=== PATIENT | female | born 1990 | race Caucasian/White ===

== ENCOUNTER 2017-06-21 13:14 | Emergency (ER) | payer MEDICAID ==
[~2017-06-21] VITALS: Ht 154.9 cm; Wt 87.0 kg
[2017-06-21 14:18] VITALS: BP 100/59
[2017-06-21] MEDS ORDERED: SODIUM CHLORIDE 0.9% 1,000 ML IV ONE (15:45)
[2017-06-21 16:03] LABS: BASOPHILS % 0.7 % (0.0-2.0); EOSINOPHILS % 4.3 % (0.0-5.0); HEMATOCRIT. 35.3 % (36.0-48.0); HEMOGLOBIN. 12.1 g/dL (12.0-16.0); LYMPHOCYTES % 24.4 % (20.0-50.0); MEAN CORPUSCULAR HEMOGLOBIN 30.8 pg (28.0-32.0); NEUTROPHILS % 65.6 % (40.0-76.0); PLATELET 197 x1000/uL (130-400); RED BLOOD CELL COUNT 3.93 mill/uL (4.2-5.4); RED CELL DISTRIBUTION WIDTH 13.9 % (11.6-14.6)
[2017-06-21 16:07] LABS: CHLORIDE 109 mEq/L (98-107)
[2017-06-21 16:33] LABS: B-HCG QUANTITATIVE 13195 mIU/mL (<3)
[2017-06-21 17:23] LABS: CLARITY URINE CLEAR (CLEAR); COLOR URINE YELLOW (YELLOW); KETONES URINE 1+ (NEGATIVE); LEUKOCYTE ESTERASE URINE 1+ (NEGATIVE); NITRITE URINE NEGATIVE (NEGATIVE); OCCULT BLOOD URINE NEGATIVE (NEGATIVE); PH URINE 6.5 (4.5-8.0); PROTEIN URINE NEGATIVE (NEGATIVE); SPECIFIC GRAVITY URINE 1.027 (1.005-1.030)
[2017-06-21 17:34] LABS: *AMPHETAMINES SCREEN URINE NEGATIVE (NEGATIVE); *BARBITURATES SCREEN URINE NEGATIVE (NEGATIVE); *BENZODIAZEPINES SCREEN URINE NEGATIVE (NEGATIVE); *COCAINE SCREEN URINE NEGATIVE (NEGATIVE); CANNABINOID URINE SCREEN NEGATIVE (NEGATIVE); METHADONE URINE SCREEN NEGATIVE (NEGATIVE); OPIATES URINE SCREEN NEGATIVE (NEGATIVE); PHENCYCLIDINE URINE SCREEN NEGATIVE (NEGATIVE)
== END 2017-06-21 19:00 | disposition home or self-care (01) ==
LOC: ER 13:14
DX: O20.0 Threatened abortion (principal); O23.42 Unspecified infection of urinary tract in pregnancy, second trimester; Z3A.18 18 weeks gestation of pregnancy
CPT/HCPCS: 36415; 76805; 80053; 80305; 81001; 81025; 84702; 85025; 86850; 86900; 86901; 99285; J7030; Z7610

== ENCOUNTER 2018-04-28 19:58 | Emergency (ER) | payer MEDICAID ==
[~2018-04-28] VITALS: Ht 162.6 cm; Wt 91.0 kg
[2018-04-28] MEDS ORDERED: SODIUM CHLORIDE 0.9% 1,000 ML IV ONE (22:44)
[2018-04-28] MEDS ORDERED: DIATR MEGLU/DIATRIZOATE SOLN 30ML ONE (22:58)
[2018-04-28 23:00] LABS: CLARITY URINE CLEAR (CLEAR); COLOR URINE YELLOW (YELLOW); KETONES URINE TRACE (NEGATIVE); LEUKOCYTE ESTERASE URINE TRACE (NEGATIVE); NITRITE URINE NEGATIVE (NEGATIVE); OCCULT BLOOD URINE NEGATIVE (NEGATIVE); PH URINE 5.5 (4.5-8.0); PROTEIN URINE NEGATIVE (NEGATIVE); SPECIFIC GRAVITY URINE 1.037 (1.005-1.030); UROBILINOGEN URINE 0.2 E.U./dL (0.2-1.0)
[2018-04-28 23:53] LABS: BASOPHILS % 0.7 % (0.0-2.0); HEMATOCRIT. 38.9 % (36.0-48.0); HEMOGLOBIN. 12.9 g/dL (12.0-16.0); LYMPHOCYTES % 37.8 % (20.0-50.0); MEAN CORPUSCULAR HEMOGLOBIN 30.4 pg (28.0-32.0); MEAN CORPUSCULAR VOLUME 91.5 fL (81.0-99.0); NEUTROPHILS % 51.5 % (40.0-76.0); PLATELET 215 x1000/uL (130-400); RED BLOOD CELL COUNT 4.25 mill/uL (4.2-5.4); RED CELL DISTRIBUTION WIDTH 12.6 % (11.6-14.6)
[2018-04-28 23:58] LABS: CHLORIDE 107 mEq/L (98-107)
[2018-04-29 00:14] LABS: HCG SCREEN NEGATIVE
[2018-04-29] MEDS ORDERED: IOHEXOL-300 100 ML BOTTLE ONE (02:00)
[2018-04-29 04:31] VITALS: BP 103/63
== END 2018-04-29 05:49 | disposition home or self-care (01) ==
LOC: ER 19:58
DX: R11.0 Nausea (principal); R19.7 Diarrhea, unspecified
CPT/HCPCS: 36415; 74177; 80053; 81003; 81025; 83690; 84703; 85025; 85610; 96360; 96361; 99284; J7030; Q9967; Q9963